=== PATIENT | female | born 1940 | race African-American/Black ===

== ENCOUNTER → 2022-06-16 10:12 | Outpatient (BNVA) | payer MEDICARE, MEDICAID, SELFPAY | PROVIDERS: PCP Internal Medicine; Referring Provider Internal Medicine; Visit Provider Internal Medicine Rheumatology | DX: M19.041 Primary osteoarthritis, right hand (principal); M19.042 Primary osteoarthritis, left hand; M06.9 Rheumatoid arthritis, unspecified; Z96.653 Presence of artificial knee joint, bilateral | CPT/HCPCS: 99202 ==

== ENCOUNTER 2022-06-16 11:43 | Outpatient (REF) | payer MEDICARE, MEDICAID, SELFPAY ==
[2022-06-16 14:41] LABS: Erythrocyte Sedimentation Rate 7 MM/HR (0-20)
[2022-06-16 14:58] LABS: C Reactive Protein 0.23 mg/dL (< or = 0.50)
[2022-06-18 16:23] LABS: Cyclic Citrullinated Peptide >250 UNITS
== END 2022-06-16 11:44 | disposition home or self-care (01) ==
LOC: HO.10HDL 11:43
PROVIDERS: Visit Provider Internal Medicine Rheumatology
DX: M06.9 Rheumatoid arthritis, unspecified (principal); M17.0 Bilateral primary osteoarthritis of knee; M19.041 Primary osteoarthritis, right hand; M19.042 Primary osteoarthritis, left hand; M25.50 Pain in unspecified joint; Z79.899 Other long term (current) drug therapy; Z96.653 Presence of artificial knee joint, bilateral
CPT/HCPCS: 36415; 85652; 86140; 86200

== ENCOUNTER 2022-06-17 10:04 | Outpatient (REF) | payer MEDICARE, OTHER, SELFPAY ==
--- NOTE | ~2022-06-17 | XR_ITS ---
EXAMINATION: XR HAND LEFT XR HAND RIGHT CLINICAL INFORMATION: Rheumatoid arthritis. COMPARISON: None TECHNIQUE: Right hand, 3 views Left hand, 3 views FINDINGS: Right hand: Bones are diffusely osteopenic. There is faintly visible chondrocalcinosis of the triangular fibrocartilage and lunatotriquetral ligament. Joint spaces are maintained at the wrist and at the metacarpophalangeal joints. Mild capsular/pericapsular calcification is present at the index finger MCP joint, and osteophytes are noted at mildly degenerated MCP joints. Also, marginal osteophyte formation is present at multiple interphalangeal joints. No erosions or periostitis. Minimal deformity of the fifth proximal phalanx could represent an old healed fracture, and there is bone island of this phalanx. No suspicious bone lesion. Left hand: Bones are diffusely osteopenic. Chondrocalcinosis of the triangular fibrocartilage and lunatotriquetral ligament. Carpal joint spaces are maintained. Small osteophytes are present at mildly degenerated second and third MCP joints and there is nonspecific soft tissue swelling of the 2nd MCP joint. No bare area erosions. Mild osteoarthritis of thumb interphalangeal joint and of other interphalangeal joints, including index finger DIP joint. XR/XR hand LT min 3V IMPRESSION: * No evidence of an erosive arthropathy in either hand or wrist. 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 * There is nonspecific soft tissue swelling of the left index finger MCP joint.
--- NOTE | ~2022-06-17 | XR_ITS ---
EXAMINATION: XR HAND LEFT XR HAND RIGHT CLINICAL INFORMATION: Rheumatoid arthritis. COMPARISON: None TECHNIQUE: Right hand, 3 views Left hand, 3 views FINDINGS: Right hand: Bones are diffusely osteopenic. There is faintly visible chondrocalcinosis of the triangular fibrocartilage and lunatotriquetral ligament. Joint spaces are maintained at the wrist and at the metacarpophalangeal joints. Mild capsular/pericapsular calcification is present at the index finger MCP joint, and osteophytes are noted at mildly degenerated MCP joints. Also, marginal osteophyte formation is present at multiple interphalangeal joints. No erosions or periostitis. Minimal deformity of the fifth proximal phalanx could represent an old healed fracture, and there is bone island of this phalanx. No suspicious bone lesion. Left hand: Bones are diffusely osteopenic. Chondrocalcinosis of the triangular fibrocartilage and lunatotriquetral ligament. Carpal joint spaces are maintained. Small osteophytes are present at mildly degenerated second and third MCP joints and there is nonspecific soft tissue swelling of the 2nd MCP joint. No bare area erosions. Mild osteoarthritis of thumb interphalangeal joint and of other interphalangeal joints, including index finger DIP joint. XR/XR hand RT min 3V IMPRESSION: * No evidence of an erosive arthropathy in either hand or wrist. 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 * There is nonspecific soft tissue swelling of the left index finger MCP joint.
== END 2022-06-17 10:05 | disposition home or self-care (01) ==
LOC: HO.XRAY 10:04
PROVIDERS: PCP Internal Medicine; Visit Provider Internal Medicine Rheumatology
DX: M06.9 Rheumatoid arthritis, unspecified (principal)
CPT/HCPCS: 73130

== ENCOUNTER → 2022-07-20 09:19 | Outpatient (BNVA) | payer MEDICARE, MEDICAID, SELFPAY | PROVIDERS: PCP Internal Medicine; Visit Provider Internal Medicine Rheumatology | DX: M06.9 Rheumatoid arthritis, unspecified (principal); M19.041 Primary osteoarthritis, right hand; M19.042 Primary osteoarthritis, left hand | CPT/HCPCS: 99212 ==

== ENCOUNTER 2023-01-06 09:10 | Outpatient (AMB) | payer MEDICARE, MEDICAID, SELFPAY ==
[2023-01-06 09:20] VITALS: BP 126/66; PULSE 60; TEMP 36.2; O2SAT 97; BMI 28.4
--- NOTE | 2023-01-06 09:20 | A.OFFVIS_ITS ---
Intake Vital Signs 01/06/23 09:20 Height 5 ft 6 in Weight 175 lb 14.862 oz BMI 28.4 BP 126/66 Blood Pressure Location Rt brachial Position Sitting Pulse 60 Pulse Source Pulse Oximeter Temp 97.2 F Temp Source Skin Pulse Oximetry (%) 97 Intake Visit Reasons: Rheumatoid Arthritis Intake Note: Pt seen today for RA follow up. Follows with Ortho in [place], states bursitis is acting up again. 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 Accompanied by: Self / Same As Patient Allergies codeine Allergy (Severe, Verified 01/06/23 09:23) SEVERE HEADACHES cefaclor Allergy (Intermediate, Verified 01/06/23 09:23) Hives levofloxacin Allergy (Intermediate, Verified 01/06/23 09:23) SOB,WHEEZING, TACHYCARDIA sertraline Adverse Reaction (Intermediate, Verified 01/06/23 09:23) MORE DEPRESSED Medication List - Last Reconciled 01/06/23 by Carl Steele MD albuterol sulfate 90 mcg/actuation (ProAir HFA) 2 puffs inhalation Q6H PRN aspirin (Adult Low Dose Aspirin) 81 mg PO DAILY atenolol 25 mg PO DAILY docusate sodium 100 mg PO BID levocetirizine (Xyzal) 5 mg PO DAILY PRN lifitegrast 5% (Xiidra) 1 drp ophthalmic (eye) BID linaclotide (Linzess) 72 mcg PO DAILY lorazepam 0.5 mg PO DAILY PRN omeprazole 40 mg PO DAILY tiotropium bromide (Spiriva with HandiHaler) 1 cap inhalation DAILY HPI HPI Comments History of Present Illness Details The patient returns today for evaluation of her rheumatoid arthritis. I had seen her about 6 months ago and felt she had early and mild RA developing in the hands. She was not interested in specific therapy at the time. She did say that she has been using wax treatments which make her feel more comfortable. She thinks the swelling is less prominent than before. She has been treated apparently with physical therapy for some right trochanteric bursitis. That improved with the therapy. She does not seem to have other joint pains currently. [facility] Medical History Calcific tendinitis of right shoulder Chronic rhinitis COPD (chronic obstructive pulmonary disease) Depression Diverticulosis Dry eye DVT (deep venous thrombosis) Eczema Epigastric abdominal pain Fatigue GERD (gastroesophageal reflux disease) Hypotension IBS (irritable bowel syndrome) Indigestion Murmur Osteoarthrosis Osteopenia Prediabetes RBBB Renal cyst Thyroid nodule Vitamin D deficiency Surgical History H/O total hysterectomy History of bilateral knee replacement History of repair of hiatal hernia Hx of colonoscopy Hx of endoscopy Family History Mother Breast cancer Dementia Father Lung cancer Myocardial infarct Social History Household Members: None Alcohol intake: current Alcohol intake frequency: does not drink Patient Tobacco Use Status: Never used Tobacco Review of Systems Const Details: Negative for appetite change, weight change, fever, chills, malaise and fatigue Eyes Details: Negative for vision change, dry eyes,headaches and dizziness Endo Details: Negative for polyuria and polydypsia Mitchell/Lymph Details: Negative for excessive bruising or bleeding. Physical Exam Vital Signs: Last Vital Signs Temp 97.2 F 01/06/23 09:20 Pulse 60 01/06/23 09:20 BP 126/66 01/06/23 09:20 Pulse Ox 97 01/06/23 09:20 BMI result Body Mass Index 28.4 APPEARANCE: Patient in no acute distress EYES no redness, pupils equal and reactive to light, eyelids normal EXTREMITIES:? No edema, no calf tenderness, normal peripheral pulses. SKIN:? No inflammatory or neoplastic lesions.? Normal color and turgor JOINT EXAM:?? Cervical Spine: ? Mild discomfort with extremes of lateral flexion at about 10 degrees or rotation to 30 degrees.? She tends to hold her head a bit tilted to the left.? No tenderness. Thoracic Spine:.? Some scoliosis.? No tenderness on palpation. Lumbar Spine:.? Some scoliosis.? Full range of motion without pain, no tenderness. Chest Wall:.? There is some slight prominence at one of the costovertebral junctions on the right.? This is today not tender but she says sometimes it does hurt.? Otherwise no tenderness, swelling, increased warmth or erythema. Hands:? Right:? There is mild swelling without tenderness at the 1st through 3rd and 5th MCP.? There is slight tenderness at the 3rd the an MCP.? There is no flexor tendon triggering or tenderness.? There is slight thickening at the 2nd through 4th PIP joints without any tenderness.? The 3rd PIP only flexes about 90 degrees.? There is some minimal bony enlargement at the DIP joints.? There is no thenar atrophy or sensory loss.? Left:? Mild swelling and tenderness at the 1st, 2nd and 5th MCP joints.? There is some minimal thickening without tenderness at the 2nd and 3rd PIPs.? There is some bony enlargement at the DIP joints without tenderness.? There is no thenar atrophy or sensory loss. Wrists:.? Normal pain-free range of motion without tenderness, swelling, increased warmth or erythema. Elbows:. Normal pain-free range of motion without tenderness, swelling, increased warmth or erythema. Shoulders:.?? Full range of motion without pain. No tenderness, weakness, swelling, increased warmth or erythema. Hips:.? Full range of motion without pain. Hip bursa:.? Slight right trochanteric tenderness. Knees:.?? Normal pain-free range of motion.? There are large anterior scars that are well healed from her knee replacements.? No areas of effusion,tenderness, swelling, increased warmth or erythema.? Ankles:.? Normal pain-free range of motion without tenderness, swelling, increased warmth or erythema. Feet:.? Normal pain-free range of motion with slight bony enlargement at the 1st MTP joints.? The 2nd through 4th toes have some dorsal deformity consistent with some early hammertoes.? The right 5th toe has some cockup deformity and laxity consistent with old injury.? On the surface of it has a corn that is mildly tender.? It does not look infected. Assessment & Plan Assessment & Plan (1) Osteoarthritis of hands, bilateral: Code(s): M19.041 - Primary osteoarthritis, right hand; M19.042 - Primary osteoarthritis, left hand (2) History of bilateral knee replacement: Comment: 04/2021: left; 09/2021: right Code(s): Z96.653 - Presence of artificial knee joint, bilateral (3) Rheumatoid arthritis: Comment: MCP swelling, positive rheumatoid factor, November 202106/18 CCP antibody >250 Code(s): M06.9 - Rheumatoid arthritis, unspecified Plan The patient seems to still have some evidence for mild and early rheumatoid arthritis. There is also some mild osteoarthritis in the hands. She is not uncomfortable so treatment options would be aimed at preventing progression of the disease and potential future for joint destruction. We discussed those goals with her but she still is not interested really in pushing for DMARD treatment. We had discussed previously the use of hydroxychloroquine, methotrexate, or sulfasalazine. At this point I think we would aim to see her back at about a year. Certainly if she feels more inclined to treatment or joints worsen she could call to be re-evaluated. Coding Level of Care Code Est Pt Level 3 (85091) Diagnoses Osteoarthritis of hands, bilateral M19.041; M19.042 History of bilateral knee replacement Z96.653 Rheumatoid arthritis M06.9
== END 2023-01-06 10:16 | disposition home or self-care (01) ==
LOC: HO.RHE 09:11
PROVIDERS: PCP Internal Medicine; Visit Provider Internal Medicine Rheumatology
DX: M19.041 Primary osteoarthritis, right hand (principal); M19.042 Primary osteoarthritis, left hand; Z96.653 Presence of artificial knee joint, bilateral; M06.9 Rheumatoid arthritis, unspecified
CPT/HCPCS: 99213

== ENCOUNTER → 2023-01-06 09:10 | Outpatient (BNVA) | payer MEDICARE, MEDICAID, SELFPAY | PROVIDERS: PCP Internal Medicine; Visit Provider Internal Medicine Rheumatology | DX: M19.041 Primary osteoarthritis, right hand (principal); M19.042 Primary osteoarthritis, left hand; M06.9 Rheumatoid arthritis, unspecified; Z96.653 Presence of artificial knee joint, bilateral | CPT/HCPCS: 99212 ==

== ENCOUNTER 2024-01-10 13:54 | Outpatient (AMB) | payer MEDICARE, MEDICAID, SELFPAY ==
--- NOTE | 2024-01-10 14:04 | MHC.OFFVIS ---
Vital Signs 01/10/24 14:11 Height 5 ft 6 in Weight 175 lb 11.335 oz BMI 28.4 BP 124/78 Blood Pressure Location Lt brachial Position Sitting Pulse 55 Pulse Source Pulse Oximeter Pulse Oximetry (%) 98 Oxygen Delivery Method Room Air Intake Visit Reasons: EARLY RA/lm Intake Note: Patient presents for early RA. Allergies codeine Allergy (Severe, Verified 01/10/24 14:08) SEVERE HEADACHES cefaclor Allergy (Intermediate, Verified 01/10/24 14:08) Hives levofloxacin Allergy (Intermediate, Verified 01/10/24 14:08) SOB,WHEEZING, TACHYCARDIA sertraline Adverse Reaction (Intermediate, Verified 01/10/24 14:08) MORE DEPRESSED Medication List - Last Reconciled 01/10/24 by Yasmeen Yoo MD albuterol sulfate 90 mcg/actuation (ProAir HFA) 2 puffs inhalation Q6H PRN amlodipine 2.5 mg PO DAILY aspirin (Adult Low Dose Aspirin) 81 mg PO DAILY atenolol 25 mg PO DAILY docusate sodium 100 mg PO BID levocetirizine (Xyzal) 5 mg PO DAILY PRN lifitegrast 5% (Xiidra) 1 drp ophthalmic (eye) BID linaclotide (Linzess) 72 mcg PO DAILY lorazepam 0.5 mg PO DAILY PRN omeprazole 40 mg PO DAILY tiotropium bromide (Spiriva with HandiHaler) 1 cap inhalation DAILY HPI Comments Details: 83-year-old female with early seropositive RA returns for follow-up. She was last seen by Dr. Steele about a year ago. She states that she is doing fairly well overall. No new symptoms. States that she gets intermittent swelling of her hands but no stiffness or pain. She denies any significant neck stiffness. She is able to carry out her daily activities normally. She uses Tylenol as needed and it helps her hips. Also has a paraffin wax machine that helps as well. She denies any significant weight loss, denies fevers. Denies any cough or shortness of breath. Most recent history by Dr. Steele 12/2022: The patient returns today for evaluation of her rheumatoid arthritis. I had seen her about 6 months ago and felt she had early and mild RA developing in the hands. She was not interested in specific therapy at the time. She did say that she has been using wax treatments which make her feel more comfortable. She thinks the swelling is less prominent than before. She has been treated apparently with physical therapy for some right trochanteric bursitis. That improved with the therapy. She does not seem to have other joint pains currently. [facility] Medical History IBS (irritable bowel syndrome) Vitamin D deficiency Diverticulosis Calcific tendinitis of right shoulder Eczema DVT (deep venous thrombosis) GERD (gastroesophageal reflux disease) Osteopenia COPD (chronic obstructive pulmonary disease) Prediabetes Depression Thyroid nodule Renal cyst Chronic rhinitis Dry eye RBBB Murmur Hypotension Fatigue Epigastric abdominal pain Indigestion Osteoarthrosis Surgical History History of bilateral knee replacement Hx of endoscopy History of repair of hiatal hernia H/O total hysterectomy Hx of colonoscopy Family History Mother Breast cancer Dementia Father Lung cancer Myocardial infarct Social History Household Members: None Alcohol intake: current Alcohol intake frequency: does not drink Patient Tobacco Use Status: Never used Tobacco Review of Systems Const Denies fever(s) and Denies weight loss Card Denies dyspnea Resp Denies cough and Denies dyspnea Musc Denies arthralgias, Reports joint swelling and Denies stiffness Physical Exam Vital Signs: Last Vital Signs Pulse 55 01/10/24 14:11 BP 124/78 01/10/24 14:11 Pulse Ox 98 01/10/24 14:11 Oxygen Delivery Method Room Air 01/10/24 14:11 BMI result Body Mass Index 28.4 Const General: cooperative, healthy appearing and comfortable Nutritional Appearance: overweight Orientation/consciousness: patient oriented x3 Limitations: no limitations HEENT Head: Yes normocephalic and Yes atraumatic Mouth: moist mucous membranes Resp Effort & Inspection: normal respiratory effort and able to speak in complete sentences Auscultation: clear to auscultation bilaterally Cardio Rate: regular rate Skin General skin exam: no rashes or lesions noted Neuro General: patient oriented x3 Extrem Other: Osteoarthritic changes of both hands Mild swelling at the right 2nd MCP but no tenderness Mild swelling of the left 2nd MCP as well as swelling the left index without any tenderness Very good bilateral hand veterinary medicine scientist strength No wrist pain with full flexion and extension No elbow pain with full flexion and extension No shoulder pain with range of motion No ankle swelling or tenderness bilaterally Negative MTP squeeze test bilaterally Normal nailfold capillaroscopy Results Reviewed Results Reviewed: Laboratory Tests EXAMINATION: XR HAND LEFT XR HAND RIGHT CLINICAL INFORMATION: Rheumatoid arthritis.? COMPARISON: None? TECHNIQUE: Right hand, 3 views Left hand, 3 views? FINDINGS: Right hand: Bones are diffusely osteopenic. There is faintly visible chondrocalcinosis of the triangular fibrocartilage and lunatotriquetral ligament. Joint spaces are maintained at the wrist and at the metacarpophalangeal joints. Mild capsular/pericapsular calcification is present at the index finger MCP joint, and osteophytes are noted at mildly degenerated MCP joints. Also, marginal osteophyte formation is present at multiple interphalangeal joints. No erosions or periostitis. Minimal deformity of the fifth proximal phalanx could represent an old healed fracture, and there is bone island of this phalanx. No suspicious bone lesion. Left hand: Bones are diffusely osteopenic. Chondrocalcinosis of the triangular fibrocartilage and lunatotriquetral ligament. Carpal joint spaces are maintained. Small osteophytes are present at mildly degenerated second and third MCP joints and there is nonspecific soft tissue swelling of the 2nd MCP joint. No bare area erosions. Mild osteoarthritis of thumb interphalangeal joint and of other interphalangeal joints, including index finger DIP joint. XR/XR hand LT min 3V IMPRESSION: *? No evidence of an erosive arthropathy in either hand or wrist. *? 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 *? There is nonspecific soft tissue swelling of the left index finger MCP joint.? Dictated By: Feng Olivares MD Assessment & Plan Assessment & Plan (1) Rheumatoid arthritis: Comment: MCP swelling, ++RF+++CCP No DMARDs Code(s): M06.9 - Rheumatoid arthritis, unspecified Category: Medical Qualifiers: Rheumatoid arthritis location: multiple sites Rheumatoid factor presence: with rheumatoid factor Qualified Code(s): M05.79 - Rheumatoid arthritis with rheumatoid factor of multiple sites without organ or systems involvement Plan: This is an 83-year-old female with likely early seropositive RA who presents for follow-up. Symptomatically patient is doing quite well. She denies any joint pain, stiffness, swelling or limitation of function. She does have very few mildly swollen joints but surprisingly no tenderness and excellent hand veterinary medicine scientist strength. I do not see any signs suggestive of active extra-articular manifestations of rheumatoid arthritis. Given potential complications of seropositive RA, there might be a role for treatment. Dr. Steele had discussed treatment for early RA with patient in the past. Today I discussed it again. Patient refused. It is going to be quite challenging to convince patient to start DMARDs when she feels quite well with no limitations. Re-evaluate in 1 year. Advised patient to return to clinic sooner if she starts having frequent joint swelling, stiffness or pain. (2) Osteoarthritis of hands, bilateral: Code(s): M19.041 - Primary osteoarthritis, right hand; M19.042 - Primary osteoarthritis, left hand Category: Medical Qualifiers: Osteoarthritis type: primary Qualified Code(s): M19.041 - Primary osteoarthritis, right hand; M19.042 - Primary osteoarthritis, left hand Plan I spent 20 minutes reviewing patient's chart, evaluating patient, counseling patient and documenting in the chart Coding Level of Care Code Est Pt Level 3 (63545) Diagnoses Rheumatoid arthritis involving multiple sites with positive rheumatoid factor M05.79 Rheumatoid arthritis location: multiple sites Rheumatoid factor presence: with rheumatoid factor Primary osteoarthritis of both hands M19.041; M19.042 Osteoarthritis type: primary
[2024-01-10 14:11] VITALS: BP 124/78; PULSE 55; O2SAT 98; BMI 28.4
== END 2024-01-10 14:44 | disposition home or self-care (01) ==
PROVIDERS: PCP Internal Medicine; Visit Provider Student in an Organized Health Care Education/Training Program
DX: M05.79 Rheumatoid arthritis with rheumatoid factor of multiple sites without organ or systems involvement (principal); M19.041 Primary osteoarthritis, right hand; M19.042 Primary osteoarthritis, left hand
CPT/HCPCS: 99213

== ENCOUNTER → 2024-01-10 13:54 | Outpatient (BNVA) | payer MEDICARE, MEDICAID, SELFPAY | PROVIDERS: PCP Internal Medicine; Visit Provider Student in an Organized Health Care Education/Training Program | DX: M05.79 Rheumatoid arthritis with rheumatoid factor of multiple sites without organ or systems involvement (principal); M19.041 Primary osteoarthritis, right hand; M19.042 Primary osteoarthritis, left hand | CPT/HCPCS: 99212 ==

== ENCOUNTER 2025-01-31 12:46 | Outpatient (AMB) | payer MEDICARE, MEDICAID, SELFPAY ==
--- NOTE | 2025-01-31 13:09 | A.OFFVIS_ITS ---
Vital Signs 01/31/25 13:10 Height 5 ft 6 in Weight 177 lb 6 oz BMI 28.6 BP 126/62 Blood Pressure Location Lt brachial Position Sitting Pulse 61 Pulse Source Pulse Oximeter Pulse Oximetry (%) 98 Oxygen Delivery Method Room Air Intake Visit Reasons: RA Intake Note: Patient last seen by doctor Yasmeen Yoo on 01/10/24. Presents today for RA follow up. Allergies codeine Allergy (Severe, Verified 01/31/25 13:13) SEVERE HEADACHES cefaclor Allergy (Intermediate, Verified 01/31/25 13:13) Hives levofloxacin Allergy (Intermediate, Verified 01/31/25 13:13) SOB,WHEEZING, TACHYCARDIA sertraline Adverse Reaction (Intermediate, Verified 01/31/25 13:13) MORE DEPRESSED Medication List - Last Reconciled 01/31/25 by Nora Rosado MD albuterol sulfate 90 mcg/actuation (ProAir HFA) 2 puffs inhalation Q6H PRN amlodipine 2.5 mg PO DAILY aspirin (Adult Low Dose Aspirin) 81 mg PO DAILY atenolol 25 mg PO DAILY docusate sodium 100 mg PO BID levocetirizine (Xyzal) 5 mg PO DAILY PRN lifitegrast 5% (Xiidra) 1 drp ophthalmic (eye) BID lorazepam 0.5 mg PO DAILY PRN omeprazole 40 mg PO DAILY tiotropium bromide (Spiriva with HandiHaler) 1 cap inhalation DAILY HPI Comments Details: Patient is an 84-year-old female with hypertension, allergies, GERD, COPD, seropositive rheumatoid arthritis and 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 Yoo - Not on any DMARDs - Following up for serpositive RA - No evidence of synovitis - Continued to monitor off DMARDs Today - Not on DMARDs - Continues to do well - Some medial knee pain Rheumatologic History: RA November 2021 No DMARDs Initial history: The patient presents with her daughter for evaluation of some hand pain and swelling. This had developed in the spring. Back in November she was seen at [facility] and there was some MCP swelling and tenderness. She was treated with a short course of prednisone, 20 mg daily for about a week and did fine. There remained some swelling after the prednionse but no pain. She has some wax treatments that she puts on the hands and that is helpful. She does not recall such prior significant swelling or pain in the MCP joints. I had seen her in the past mostly for osteoarthritis of the knees. This eventually resulted in joint replacements which were done last April and the 2nd 1 was done this past September. Those joints seem to be doing fine. She had them done at [facility] [place]. Currently she takes occasional Tylenol for symptoms but otherwise no medications. I reviewed the record at [facility]. Current Rheumatology Medication(s): [facility] Medical History IBS (irritable bowel syndrome) Vitamin D deficiency Diverticulosis Calcific tendinitis of right shoulder Eczema DVT (deep venous thrombosis) GERD (gastroesophageal reflux disease) Osteopenia COPD (chronic obstructive pulmonary disease) Prediabetes Depression Thyroid nodule Renal cyst Chronic rhinitis Dry eye RBBB Murmur Hypotension Fatigue Epigastric abdominal pain Indigestion Osteoarthrosis Surgical History History of bilateral knee replacement Hx of endoscopy History of repair of hiatal hernia H/O total hysterectomy Hx of colonoscopy Family History Mother Breast cancer Dementia Father Lung cancer Myocardial infarct Social History Household Members: None Alcohol intake: current Alcohol intake frequency: does not drink Patient Tobacco Use Status: Never used Tobacco Review of Systems Const Details: Review of Systems Constitutional: Denies fever, chills, weight loss ENT: Denies vision changes, eye pain or eye redness, dental caries, dry mouth GI: Denies nausea, vomiting, diarrhea, abdominal pain, change in BM Pulm: Denies SOB, OSHEA, hemoptysis, wheezing Cards: Denies chest pain, palpitations Skin: Denies Raynaud's, rash, nail changes, photosensitivity, METAL CASKET ASSEMBLER: Denies headaches, weakness, paresthesias, recurrent falls MSK: as per HPI All other systems reviewed and are unremarkable except noted above Physical Exam Exam Exam: Vital signs reviewed Physical Examination CONSTITUITIONAL Patient alert and cooperative. Well appearing and in no apparent painful distress MSK Hands * Right Hand: Able to make a fist. No swelling or tenderness to palpation of these joints. * Left Hand: Able to make a fist. No swelling or tenderness to palpation of these joints. * Herbedens nodes noted bilaterally Wrists * Right Wrist: Full ROM. 70 degrees of wrist flexion, 80 degrees of wrist extension. No swelling or TTP * Left Wrist: Full ROM. 70 degrees of wrist flexion, 80 degrees of wrist extension. No swelling or TTP Elbows * Right Elbow: Full ROM. No swelling or TTP. No TTP of the medial and lateral epicondyles * Left Elbow: Full ROM. No swelling or TTP. No TTP of the medial and lateral epicondyles Shoulders * Right shoulder: Full ROM. No swelling noted. No TTP of the AC joint, subacromial bursa or posterior shoulder * Left shoulder: Full ROM. No swelling noted. No TTP of the AC joint, subacromial bursa or posterior shoulder Knees * Right knee: Full ROM. No swelling noted. No TTP of the knee joint lie or pes anserine bursa * Left knee: Full ROM. No swelling noted. No TTP of the knee joint lie or pes anserine bursa. * Anterior surgical scars over bilateral knees Ankles * Right ankle: Good ankle dorsiflexion and plantar flexion. No swelling. No TTP of the ankle joint * Left ankle: Good ankle dorsiflexion and plantar flexion. No swelling. No TTP of the ankle joint Feet * Right foot: Negative squeeze test * Left foot: Negative squeeze test Tender points? * No tenderness to palpation of the bilateral trapezius, supraspinatus, anterior costochondral junctions, bilateral suboccipital muscle insertions SKIN No rashes Vital Signs: Last Vital Signs Pulse 61 01/31/25 13:10 BP 126/62 01/31/25 13:10 Pulse Ox 98 01/31/25 13:10 Oxygen Delivery Method Room Air 01/31/25 13:10 BMI result Body Mass Index 28.6 Results Reviewed Results Reviewed: Laboratory Tests 06/16/22 11:50 Cycl Citrul Peptide IgG >250 H XR Bilateral Hands 05/2022 FINDINGS: Right hand: Bones are diffusely osteopenic. There is faintly visible chondrocalcinosis of the triangular fibrocartilage and lunatotriquetral ligament. Joint spaces are maintained at the wrist and at the metacarpophalangeal joints. Mild capsular/pericapsular calcification is present at the index finger MCP joint, and osteophytes are noted at mildly degenerated MCP joints. Also, marginal osteophyte formation is present at multiple interphalangeal joints. No erosions or periostitis. Minimal deformity of the fifth proximal phalanx could represent an old healed fracture, and there is bone island of this phalanx. No suspicious bone lesion. Left hand: Bones are diffusely osteopenic. Chondrocalcinosis of the triangular fibrocartilage and lunatotriquetral ligament. Carpal joint spaces are maintained. Small osteophytes are present at mildly degenerated second and third MCP joints and there is nonspecific soft tissue swelling of the 2nd MCP joint. No bare area erosions. Mild osteoarthritis of thumb interphalangeal joint and of other interphalangeal joints, including index finger DIP joint. IMPRESSION: * No evidence of an erosive arthropathy in either hand or wrist. 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 * There is nonspecific soft tissue swelling of the left index finger MCP joint. Assessment & Plan Assessment & Plan (1) Rheumatoid arthritis: Comment: November 2021 MCP swelling, ++RF+++CCP No DMARDs Code(s): M06.9 - Rheumatoid arthritis, unspecified Category: Medical Qualifiers: Rheumatoid arthritis location: multiple sites Rheumatoid factor presence: with rheumatoid factor Qualified Code(s): M05.79 - Rheumatoid arthritis with rheumatoid factor of multiple sites without organ or systems involvement Plan: #Seropositive RA Patient is an 84-year-old female with seropositive rheumatoid arthritis here today for follow up. Currently no signs or symptoms concerning for active rheumatoid arthritis with no evidence of synovitis on examination. We will continue to monitor off DMARDs Plan - Continue to monitor off DMARDs (2) Osteoarthritis of knees, bilateral: Code(s): M17.0 - Bilateral primary osteoarthritis of knee Category: Medical Qualifiers: Osteoarthritis type: primary Qualified Code(s): M17.0 - Bilateral primary osteoarthritis of knee Plan: #Bilateral knee OA Patient with bilateral knee OA status post replacement. Complaining of medial knee pain today. No tenderness to palpation on examination. Patient interested in going to physical therapy which she states has helped in the past when this pain has occurred. Same printed and given as patient would like to go to the [place] physical therapy near her Plan I spent 25 minutes reviewing the record and labs, taking a history, examining the patient, discussing the treatment plan, ordering diagnostic work up and documenting in the medical record Orders: Orders PT Evaluation and Treatment Today M17.0 - Bilateral primary osteoarthritis of knee, Z96.653 - Presence of artificial knee joint, bilateral Coding Level of Care Code Est Pt Level 3 (83949) Diagnoses Rheumatoid arthritis involving multiple sites with positive rheumatoid factor M05.79 Rheumatoid arthritis location: multiple sites Rheumatoid factor presence: with rheumatoid factor Primary osteoarthritis of both knees M17.0 Osteoarthritis type: primary
[2025-01-31 13:10] VITALS: BP 126/62; PULSE 61; O2SAT 98; BMI 28.6
--- OUTSIDE RECORDS SUMMARY | 2025-01-31 13:18 | XMS_ITS | Clinical Summary ---
Author Organization [facility] Address [address] [place] [address] Care Team Providers Care Motion Picture Film Examiner Name Role Phone Nick Kaur MD Primary Care Provider [phone] Allergies Active Allergy Reactions Criticality Noted Date Comments Cefaclor Hives,Other (See Comments) Medium 03/02/2007 Codeine Rash,Other (See Comments) Low 03/02/2007 headache Levofloxacin Other (See Comments) Medium 04/07/2018 Upset stomach, tachycardia Sertraline Other (See Comments) Low 07/14/2018 More depressed. Medications Medication Sig Dispensed Refills Start Date End Date Status atenolol (TENORMIN) tablet 25 mg Take 1 tablet (25 mg total) by mouth daily. 0 11/23/2018 Active LORazepam (ATIVAN) 0.5 MG tablet Take 1 tablet (0.5 mg total) by mouth. 0 12/12/2018 Active RESTASIS 0.05 % ophthalmic emulsion Place 1 drop into both eyes 2 (two) times a day. 3 01/19/2019 Active omeprazole (PriLOSEC) 40 MG capsule Take 1 capsule (40 mg total) by mouth. 0 Active B Complex Vitamins (VITAMIN B COMPLEX IJ) Inject as directed. 0 Active VITAMIN B COMPLEX-C PO Take by mouth daily. 0 Active vitamin D3 (VITAMIN D3) 25 MCG (1000 UT) tablet Take 1 tablet (1,000 Units total) by mouth daily. 0 Active albuterol 108 (90 Base) MCG/ACT inhaler Inhale 2 puffs into the lungs. 0 04/29/2020 Active levocetirizine (XYZAL) 5 MG tablet Take 1 tablet (5 mg total) by mouth every evening. 0 07/20/2021 Active TURMERIC PO Take by mouth daily. 0 Active tiotropium (SPIRIVA) [address] 1 capsule (18 mcg total) into inhaler and inhale daily as needed. 0 Active aspirin EC 81 MG EC tablet Take 1 tablet (81 mg total) by mouth 2 (two) times a day with meals. 30 tablet 0 11/08/2021 Active acetaminophen (TYLENOL EXTRA STRENGTH) 500 MG tablet Take 2 tablets (1,000 mg total) by mouth every 8 (eight) hours. 30 tablet 0 10/03/2021 Active clindamycin (CLEOCIN) 300 MG capsule Take 2 tabs one hour prior to dental procedure 6 capsule 2 01/22/2022 Active amLODIPine (NORVASC) tablet 2.5 mg Take 1 tablet (2.5 mg total) by mouth daily. 0 Active Ferrous Bisglycinate Chelate 28 MG CAPS Take 1 capsule by mouth daily. 30 capsule 2 09/13/2023 Active Active Problems Problem Noted Date Diagnosed Date Primary osteoarthritis of right knee 09/29/2021 Prediabetes 09/08/2021 Osteoarthritis 05/07/2021 Arthritis of knee, left 02/23/2019 Immunizations Name Administration Dates Next Due Covid-19 (Pfizer) Dilution Required 06/19/2021,0 08/25/2020,08/03/2020 Family History Medical History Relation Name Comments Cancer Father lung Hypertension Father Cancer Mother breast Hypertension Mother Diabetes Sister Hypertension Sister Relation Name Status Comments Father Mother Sister Social History Tobacco Use Types Packs/Day Years Used Date Smoking Tobacco: Former Cigarettes Q uit: 04/10/1986 Smokeless Tobacco: Never Tobacco Cessation:Counseling Given: Not Answered Alcohol Use Standard Drinks/Week Comments Yes 0 (1 standard drink = 0.6 oz pur e alcohol) monthly Sex and Gender Information Value Date Recorded Sex Assigned at Female 04/07/2021 11:42 AM EDT Gender Identity Female 04/10/2021 10:02 AM EDT Sexual Orientation Not on file Job Start Date Occupation Industry Not on file Not on file Not on file Last Filed Vital Signs Vital Sign Reading Time Taken Comments Blood Pressure 160/80 12/14/2023 10:39 AM EDT Pulse 54 12/14/2023 10:39 AM EDT Temperature 36.4 C (97.6 F) 12/14/2023 10:39 AM EDT Respiratory Rate 14 10/03/2021 7:08 AM EDT Oxygen Saturation 100% 12/14/2023 10:39 AM EDT Inhaled Oxygen Concentration - - Weight 80.3 kg (177 lb) 12/14/2023 10:39 AM EDT Height 167.6 cm (5' 6 ) 12/14/2023 10:39 AM EDT Body Mass Index 28.57 12/14/2023 10:39 AM EDT Plan of Treatment Health Maintenance Due Date Last Done Comments Depression Screening 1952 BMI Counseling 10/31/1959 Preventative Health Evaluation 10/31/1959 Shingrix-Zoster Vaccine (1 of 2) 10/31/1991 Fall Risk Assessment 2006 Osteoporosis Screening (DEXA Scan) 2006 DTap / Tdap / Td (2 - Td or Tdap) 07/27/2016 07/27/2006 RSV Adult > 60+ Yrs or (1 - 1-dose 75+ series) 2016 COVID-19 Vaccine ( season) 2024 03/18/2022, 06/19/2021, 08/25/2020, Additional history exists Influenza Vaccine (#1) 2025 3, 07/24/2021, 03/03/2018, Additional history exists Pneumococcal Vaccine Completed 07/22/2016, 01/19/20 07 Hepatitis B Vaccines Aged Out No long er eligible based on patient's age to complete this topic RSV Ped < 20 months Aged Out No longe r eligible based on patient's age to complete this topic Medical Devices Implanted Type Area Tdp Displays Analyst Device Identifier Shelf Expiration Date Model / Serial / Lot Nexgen Complete Knee Solution Legacy Knee-Posterior Stabilized Prolong Highly Crosslinked Polyethylene Lps-Flex Articular Surface Size E F, 10 Mm Height Implanted:Qty: 1 on 05/07/2021 by Oliver Hopper MD at [facility] Total Joint Left: Knee Pepe 09/04/2025 [id number] / / [id number] Cement [facility] Surg Simplex [facility]q [facility] 8916-4-356-1140 92 - [id number] Implanted:Qty: 1 on 05/07/2021 by Oliver Hopper MD at [facility] Left: Knee [employer] 04/27/2022 6191-1-010 / / [id number] Cement Bone Surg Simplex Radiopq Stry-Howm 4484-3-241-1140 92 - [id number] Implanted:Qty: 1 on 05/07/2021 by Oliver Hopper MD at [facility] Left: Knee [employer] 04/27/2022 6191-1-010 / / [id number] Knee Patella 35 Std 9.0mm Nexgen Zimm-Prnt [id number] - [id number] Implanted:Qty: 1 on 05/07/2021 by Oliver Hopper MD at [facility] Left: Knee [employer] 12/15/2028 [id number] / / [id number] Knee Fem Lps Flx Gfs Opt F Lft Zimm-Prnt [id number] 261 - [id number] Implanted:Qty: 1 on 05/07/2021 by Oliver Hopper MD at [facility] Left: Knee [employer] 03/20/2030 [id number] / / [id number] Knee Tib Plate Sz 5 Stemmed Zimm-Prnt [id number] 353 - [id number] Implanted:Qty: 1 on 05/07/2021 by Oliver Hopper MD at [facility] Left: Knee [employer] 01/11/2030 [id number] / / [id number] Knee Stem Str Ext 43o03ee Zimm-Prnt [id number] - [id number] Implanted:Qty: 1 on 05/07/2021 by Oliver Hopper MD at [facility] Left: Knee [employer] 01/25/2030 [id number] / / [id number] Nex Gen Complet Knee Solution Tibial Block Precoat Size 5 5mm Thickness Implanted:Qty: 1 on 05/07/2021 by Oliver Hopper MD at [facility] Left: Knee Pepe 11/25/2025 [id number] / / [id number] Knee Pat Symmetric X3 3x39mm Stry-Howm 7940-A-[id number] 20 - [id number] Implanted:Qty: 1 on 10/02/2021 by Gal Mendez MD at [facility] Right: Knee [employer] [id number] 03/22/2024 5550-G-339 / / [id number] Knee Baseplt Tib Cmnt Sz5 Stry-Howm 7345-V-[id number] 91 - [id number] Implanted:Qty: 1 on 10/02/2021 by Gal Mendez MD at [facility] Right: Knee [employer] [id number] 04/09/2026 5520-B-500 / / [id number] Knee Insert Tib Ps X3 Sz5 11mm Stry-Howm 9016-P-[id number] 52 - [id number] Implanted:Qty: 1 on 10/02/2021 by Gal Mendez MD at [facility] Right: Knee [employer] [id number] 04/22/2026 5532-G-511 / / [id number] Cement Bone Surg Simplex Radiopq Stry-Howm 6186-2-090-1140 92 - [id number] Implanted:Qty: 1 on 10/02/2021 by Gal Mendez MD at [facility] Right: Knee [employer] 11/26/2023 6191-1-010 / / [id number] Cement Bone Surg Simplex Radiopq Stry-Howm 6083-3-421-1140 92 - [id number] Implanted:Qty: 1 on 10/02/2021 by Gal Mendez MD at [facility] [employer] 11/26/2023 6191-1-010 / / [id number] Knee Fem Inocente Ps Trthln Rt #5 Stry-Howm 6610-O-[id number] 49 - [id number] Implanted:Qty: 1 on 10/02/2021 by Gal Mendez MD at [facility] Right: Knee [employer] [id number] 08/08/2024 5515-F-502 / / [id number] Advance Directives For more information, please contact: [phone] Documents on File Type Date Recorded 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 Code Status History Code Status Date Activated Date Inactivated Comments Full Code 10/02/2021 5:45 AM 10/02/2021 11:59 AM This c ode status was ascertained in the following way: discussion with patient . Full Code 05/07/2021 8:09 AM 05/08/2021 10:16 PM Th is code status was ascertained in the following way: discussion with healthcare personal financial representative . Full Code 05/07/2021 5:52 AM 05/07/2021 8:09 AM . Care Teams Motion Picture Film Examiner Relationship Specialty Start Date End Date Nick Kaur MD PCP - General Internal Medicine 02/15/19
--- OUTSIDE RECORDS SUMMARY | 2025-01-31 13:18 | XMS_ITS | Encounter Summary ---
Author Organization [facility] Address [address] [place] [address] Care Team Providers Care Staff Midwife Name Role Phone Nick Kaur MD Primary Care Provider [phone] Encounter Details Date Type Department Care Team (Late st Contact Info) Description 10/03/[address] [facility] - Main Lab [address] [facility] [place] [address] Rhonda Mukherjee MD [address] [facility] [address] [place] [phone] Acute vaginitis Social History Tobacco Use Types Packs/Day Years Used Date Smoking Tobacco: Former Cigarettes Q uit: 04/10/1986 Smokeless Tobacco: Never Alcohol Use Standard Drinks/Week Comments No 0 (1 standard drink = 0.6 oz pur e alcohol) Comments Unknown Sex and Gender Information Value Date Recorded Sex Assigned at Not on file Legal Sex Female 10:18 PM EST Gender Identity Not on file Sexual Orientation Not on file documented as of this encounter Plan of Treatment Upcoming Encounters Date Type Department Care Team (Late st Contact Info) Description 03/02/2025 2:40 PM EDT Office Visit [facility] [address] [facility] [address] [place] [id number] Shalini Valentine NP [address] [place] [address] [place] [address] 03/16/2025 8:30 AM EDT Appointment [facility] Ultrasound [address] [place] [phone] 04/03/2025 1:30 PM EDT Appointment Radiology Department [address] [phone] 04/25/2025 10:00 AM EDT Office Visit Gastroenterology - [place] [address] [phone] Anna Benjamin NP [address] [address] 05/14/2025 11:30 AM EST Office Visit Pulmonolgy - [place] [address] [phone] Kristin Min MD [address] [address] 05/30/2025 11:00 AM EST Office Visit Internal Medicine - [facility] [address] [place] [address] Nick Kaur MD [address] [place] [id number] documented as of this encounter Procedures Procedure Name Priority Date/Time Associated Diagnosis Comments VAGINITIS PATHOGENS BY PCR Routine 10/03/2024 12:00 AM EDT Acute vaginitis documented in this encounter Results * Vaginitis pathogens molecular study (10/03/2024 12:00 AM EDT) Trichomonas vaginalis Negative Negative 10/04/2024 10:28 AM EDT [facility] Gardnerella vaginalis Negative Negative 10/04/2024 10:28 AM EDT [facility] Marisol Species Negative Negative 10:28 AM EDT [facility] Swab Vaginal structure / Unknown 10/03/2024 10/03/2024 12:17 PM EDT us Rhonda Mukherjee MD LAB MICROBIOLOGY - GENER AL ORDERABLES Final Result [facility] [address] [place] [address], documented in this encounter Visit Diagnoses Diagnosis Acute vaginitis Unspecified vaginitis and vulvovaginitis Encounter for screening mammogram for breast cancer documented in this encounter Care Teams Staff Midwife Relationship Specialty Start Date End Date Nick Kaur MD [address] [place] [id number] PCP - General Internal Medicine 04/20/24 documented as of this encounter
--- OUTSIDE RECORDS SUMMARY | 2025-01-31 13:18 | XMS_ITS | Clinical Summary ---
Author Organization [facility] Address [address] [facility] [address] [place] [address] Phone Care Team Providers Care Movie Shot Cameraman Name Role Phone Unavailable Primary Care Provider Unavailabl e Social History Tobacco Use Types Packs/Day Years Used Date Smoking Tobacco: Never Assessed Education Answer Date Recorded Are you interested in more education? Not on santos e 10/24/2022 Are you concerned about learning? Not on file 10/24/2022 No 10/24/2022 No 10/24/2022 Digital Access Answer Date Recorded No 11/24/2022 No 11/24/2022 Reliable internet access at home? Not on file 11/24/2022 Device with a working camera? Not on file Comments Unknown Sex and Gender Information Value Date Recorded Sex Assigned at Not on file Legal Sex Female 3:28 PM EDT Gender Identity Not on file Sexual Orientation Not on file Plan of Treatment Not on file Medical Devices Not on file Additional Source Comments The information contained in this document represents components of the legal health record. It is not the complete legal health record.[facility]
== END 2025-01-31 13:44 | disposition home or self-care (01) ==
LOC: HO.RHES 12:47
PROVIDERS: PCP Internal Medicine; Visit Provider Student in an Organized Health Care Education/Training Program
DX: M05.79 Rheumatoid arthritis with rheumatoid factor of multiple sites without organ or systems involvement (principal); M17.0 Bilateral primary osteoarthritis of knee
CPT/HCPCS: 99213

== ENCOUNTER → 2025-01-31 12:46 | Outpatient (BNVA) | payer MEDICARE, MEDICAID, SELFPAY | PROVIDERS: PCP Internal Medicine; Visit Provider Student in an Organized Health Care Education/Training Program | DX: M05.79 Rheumatoid arthritis with rheumatoid factor of multiple sites without organ or systems involvement (principal); M17.0 Bilateral primary osteoarthritis of knee; Z96.653 Presence of artificial knee joint, bilateral | CPT/HCPCS: 99212 ==